=== PATIENT | female | born 1985 | race Caucasian/White ===

== ENCOUNTER → 2018-04-14 | Outpatient (CLI) | payer MEDICAID ==
[~2018-04-14] MED LIST: CALC1TAB32 PO; OMEG-23 PO; PREN-127 PO; THY60 FT
[2018-04-14 11:14] LABS: PLATELET COUNT, AUTOMATED 225 K/uL (150-450)
== END ==
LOC: LAB 10:48
PROVIDERS: ATTEND Obstetrics & Gynecology
DX: Z34.91 Encounter for supervision of normal pregnancy, unspecified, first trimester (principal); E03.9 Hypothyroidism, unspecified; R82.79 Other abnormal findings on microbiological examination of urine
CPT/HCPCS: 36415; 81001; 84443; 85025; 86592; 86703; 86762; 86850; 86900; 86901; 87088; 87340

== ENCOUNTER → 2018-04-24 | Outpatient (CLI) | payer MEDICAID ==
[~2018-04-24] MED LIST changes: +THY60 PO
== END ==
LOC: LAB 09:03
PROVIDERS: ATTEND Student in an Organized Health Care Education/Training Program
DX: Z34.91 Encounter for supervision of normal pregnancy, unspecified, first trimester (principal)
CPT/HCPCS: 87491; 87591

== ENCOUNTER → 2018-07-03 | Outpatient (CLI) | payer MEDICAID ==
--- NOTE | 2018-07-03 16:36 | RADIOLOGY IMAGING REPORT ---
FACILITY: [facility] - [place] PATIENT NAME: Gabriela Williamson : 1985 MR: [id number] V: [id number] EXAM DATE: ORDERING PHYSICIAN: DANIELE GLASS TECHNOLOGIST: Location: [facility] Patient: Gabriela Williamson : 1985 Visit/Account:[id number] Date of Sevice: 07/03/2018 EXAMINATION: Transabdominal OB Ultrasound >14 wks with Anatomic Survey 07/03/2018 10:31 AM History: Anatomic survey COMPARISON: None FINDINGS: Intrauterine gestations: one presentation: vertex heart rate: 135 bpm Amniotic fluid index: 14.9 cm Largest amniotic fluid pocket 4.9 cm Placenta: Anterior. With transvaginal imaging the placenta covers the internal os although with earli er transabdominal imaging there appear to be a measurable distance between the edge in the internal o s, and I am not certain if this is a true complete previa or simply a marginal previa. Placental cord insertion is normal. Uterus: gravid, otherwise normal Maternal adnexa: negative Cervix: 4 cm. Closed. Gestational Parameters: BPD: 5.2 cm 21 weeks 5 days HC: 18.9 cm 21 weeks 2 days AC: 18.2 cm 23 weeks 1 day FL: 3.4 cm 20 weeks 5 days Average ultrasound age (AUA): 21 weeks 5 days Estimated gestational age by LMP: 20 weeks 5 days Estimated weight (EFW): 458 grams +/- 67 grams EFW for LMP percentile: 95 Anatomic Survey: Intracranial structures, nose and lips, 4-chamber heart and outflow tracts, stomach, kidneys, urinary bladder, spine, 3-vessel cord and cord insertion are unremarkable. Two upper and two lower extremiti es visualized. IMPRESSION: 1. Single live intrauterine gestation; estimated ultrasound age 21 weeks 5 days (OZZY 11/08/2018). This is 1 week ahead of clinical dates which is within range of error. Of note the estimated weight is 95th percentile for LMP. 2. Unremarkable anatomic survey. 3. Probably complete or at least marginal placenta previa with an anterior placenta. Report Dictated By: Hugo King MD at 07/03/2018 4:23 PM Report E-Signed By: Hugo King MD at 07/03/2018 4:32 PM WSN:[id number]
== END ==
LOC: RAD 10:26
PROVIDERS: ATTEND Student in an Organized Health Care Education/Training Program
DX: Z02.9 Encounter for administrative examinations, unspecified (principal)